=== PATIENT | female | born 1990 | race Two or more races ===

== ENCOUNTER 2019-11-22 18:24 | Emergency (ER) | payer BC, OTHER ==
[~2019-11-22] VITALS: Ht 167.6 cm; Wt 44.9 kg
--- NOTE | 2019-11-22 19:05 | NUR ---
PT [id number]. AMBULATORY WITH STEADY GAIT. CAME IN WITH [facility]. REQUESTING MEDICATION FOR CHRONIC PAIN FROM [place].
[2019-11-22] MEDS ORDERED: IBUPROFEN 400 MG TABLET ONE (19:15)
[2019-11-22] MEDS ORDERED: ACETAMINOPHEN 325 MG TABLET ONE (19:15)
[2019-11-22] MEDS ORDERED: IBUPROFEN 400 MG TABLET PO ONE (19:30)
[2019-11-22] MEDS ORDERED: ACETAMINOPHEN 325 MG TABLET PO ONE (19:30)
--- NOTE | 2019-11-22 19:31 | NUR ---
Patient discharged to home in stable condition. Written and verbal after care instructions given. Patient verbalizes understanding of instruction. Pt denies pain at the moment. VSS.
[2019-11-22 19:32] VITALS: BP 108/68
== END 2019-11-22 19:32 | disposition home or self-care (01) ==
LOC: ER 18:29
DX: G89.29 Other chronic pain (principal); R63.6 Underweight; M79.7 Fibromyalgia; Z68.1 Body mass index [BMI] 19.9 or less, adult

== ENCOUNTER 2020-06-14 16:10 | Emergency (ER) | payer SELFPAY ==
[~2020-06-14] VITALS: Ht 167.6 cm; Wt 59.0 kg
--- NOTE | 2020-06-14 16:13 | NUR ---
[id number][facility], noted w R wrist laceration. patient states "I slashed myself with a pen, I am not intending to hurt myself, i have been doing this since I was 16. I was just there to claim my medications". to ER bed 10, hooked to monitor, [employer] at bedside for investigation.
--- NOTE | 2020-06-14 16:21 | NUR ---
DR WALLACE AT BEDSIDE
--- NOTE | 2020-06-14 16:31 | NUR ---
RESISTOR TESTER AT BEDSIDE FOR WOUND CARE
--- NOTE | 2020-06-14 17:06 | NUR ---
Patient discharged to home in stable condition. Written and verbal after care instructions given. Patient verbalizes understanding of instruction. No SI/HI.
[2020-06-14 17:07] VITALS: BP 132/80
== END 2020-06-14 17:07 | disposition home or self-care (01) ==
LOC: ER 16:12
DX: S61.511A Laceration without foreign body of right wrist, initial encounter (principal); X78.8XXA Intentional self-harm by other sharp object, initial encounter; Y93.89 Activity, other specified; Y92.89 Other specified places as the place of occurrence of the external cause; Y99.8 Other external cause status